=== PATIENT | female | born 1995 | race Caucasian/White ===

== ENCOUNTER → 2017-11-08 | Outpatient (CLI) | payer BC ==
--- NOTE | 2017-11-08 15:24 | Diagnostic Imaging Report ---
INDICATION: survey. TECHNIQUE: Multiple real-time grayscale images were obtained over the gravid uterus. COMPARISON: None. FINDINGS: There is a single live fetus in a cephalic presentation. The placenta is anterior. The amniotic fluid volume is normal. survey demonstrates kidneys, bladder, and stomach to be unremarkable. The brain is unremarkable. There is a four-chamber heart. There is a three-vessel cord with normal cord insertion. spine was not well seen on today's exam. Biometrical measurements are as follows: Biparietal 4.79 cm, age 20 weeks 4 days. Head circumference 17.82 cm, age 20 weeks 2 days. Abdominal circumference 13.58 cm, age 19 weeks 1 days. Femur length 3.77 cm, age 22 weeks 1 days. Sonographic estimate age: 20 weeks 4 days. Sonographic estimated date of delivery: 03/24/18. Estimated Weight: 353 gm (+/- 52 gm). LMP percentile: 53%. heart rate: 165 beats per minute. number: 1 of 1. IMPRESSION: Single live IUP at approximately 20 weeks 4 days gestational age. The estimated date of confinement sonographically is 03/24/2018. Note is made that spine was not well visualized on today's exam and followup could be performed. Dictated by: Dictated on workstation # [id number]
== END ==
LOC: RAD 13:44
PROVIDERS: ATTEND Obstetrics & Gynecology
DX: Z36.89 Encounter for other specified antenatal screening (principal); Z3A.20 20 weeks gestation of pregnancy
CPT/HCPCS: 76805

== ENCOUNTER 2018-05-23 05:55 | Day surgery (SDC) | payer BC, MEDICAID ==
[~2018-05-23] VITALS: Ht 167.6 cm; Wt 90.7 kg
[~2018-05-23 05:55] MED LIST: ACHD5005 PO; Benzocaine/Menthol TP; DIBU30OI TOP; DOCU100C37 PO; FERR325T18 PO; IBUP-844 PO; PNV11TAB5 PO
[2018-05-23 06:15] VITALS: BP 100/68
[2018-05-23] MEDS ORDERED: ceFAZolin 2 GM IV Premixed 50 ML IV ONE (06:30)
[2018-05-23] MEDS: LACTATED RINGERS 1,000 ML IV PRN ×2 (06:30→08:45)
[2018-05-23 06:38] LABS: BASOPHILS # (AUTO) 0.1 10^3/uL (0.0-0.1); BASOPHILS % (AUTO) 1 % (0-10); EOSINOPHILS # (AUTO) 0.2 10^3/uL (0.0-0.3); EOSINOPHILS % (AUTO) 3 % (0-10); HEMATOCRIT 37 % (35-52); HEMOGLOBIN 12.8 G/DL (11.5-16.0); LYMPHOCYTES # (AUTO) 1.7 X 10^3 (1.0-4.0); LYMPHOCYTES % (AUTO) 27 % (12-44); MEAN CORPUSCULAR HEMOGLOBIN 32 PG (25-34); MEAN CORPUSCULAR HGB CONC 35 G/DL (32-36); MEAN CORPUSCULAR VOLUME 92 FL (80-99); MEAN PLATELET VOLUME 10.3 FL (7.4-10.4); MONOCYTES # (AUTO) 0.6 X 10^3 (0.0-1.0); MONOCYTES % (AUTO) 9 % (0-12); NEUTROPHILS # (AUTO) 3.8 X 10^3 (1.8-7.8); NEUTROPHILS % (AUTO) 60 % (42-75); PLATELET COUNT 334 10^3/uL (130-400); RED BLOOD COUNT 4.03 10^6/uL (4.35-5.85); RED CELL DISTRIBUTION WIDTH 11.7 % (10.0-14.5); WHITE BLOOD COUNT 6.3 10^3/uL (4.3-11.0)
[2018-05-23] MEDS ORDERED: CATHETER FLUSH 10 ML SYR IV PRN (07:00)
[2018-05-23] MEDS ORDERED: LIDOCAINE PF 2% 5 ML (XYLOCAINE) VIAL ONE (07:02)
[2018-05-23] MEDS ORDERED: DEXAMETHASONE 10 MG/ML (DECADRON) 1 ML VIAL ONE (07:02)
[2018-05-23] MEDS ORDERED: NEOSTIGMINE 1 MG/ML 5 ML SYRINGE ONE (07:02)
[2018-05-23] MEDS ORDERED: ONDANSETRON 4 MG/2 ML (SDV) Z0FRAN ONE (07:02)
[2018-05-23] MEDS ORDERED: MIDAZOLAM 2 MG/2 ML (VERSED) VIAL ONE (07:02)
[2018-05-23] MEDS ORDERED: GLYCOPYRROLATE 0.2 MG/ML (ROBINUL) 2 ML VIAL ONE (07:02)
[2018-05-23] MEDS ORDERED: proPOfol 200 MG/20 ML (DIPRIVAN) VIAL IV ONE (07:02)
[2018-05-23] MEDS ORDERED: SEVOFLURANE (ULTANE) 15 ML INHAL SOLN ONE (07:02)
[2018-05-23] MEDS ORDERED: ROCURONIUM 10 MG/ML 5 ML SYRINGE IV ONE (07:02)
[2018-05-23] MEDS ORDERED: fentaNYL INJECTION 100 MCG/2 ML AMP ONE ×2 (07:02→09:09)
[2018-05-23] MEDS ORDERED: LIDOCAINE/EPI 1%-1:200,000 (XYLOCAINE) 10 ML VIAL ONE (07:02)
--- OUTSIDE RECORDS SUMMARY | 2018-05-23 07:46 | XMS REPORT | Continuity of Care Document ---
Demographics Preferred Language Unknown Marital Status Unknown Gnosticism Affiliation Unknown Race Unknown Ethnic Group Unknown Author Author [facility] Address Unknown Phone Unavailable Allergies Active Description Code Type Severity Reaction Onset Reported/Identified Relationship to Patient Clinical Status Yes ibuprofen [id number] Drug Allergy Unknown N/A 03/15/2018 Yes No Known Drug Allergies [id number] Drug Allergy Unknown N/A 03/15/2018 Medications There is no data. Problems Date Dx Coded Attending Type Code Diagnosis Diagnosed By 11/09/2017 FENECH DOVAZQUEZ S Ot Z36.89 ENCOUNTER FOR OTHER SPECIFIED 11/09/2017 FENECH DO, VAZQUEZ S Ot Z3A.20 20 WEEKS GESTATION OF 11/26/2017 FENECH DO VAZQUEZ S Ot Z36.89 ENCOUNTER FOR OTHER SPECIFIED 11/26/2017 FENECH DO, VAZQUEZ S Ot Z3A.20 20 WEEKS GESTATION OF 11/30/2017 FENECH DO VAZQUEZ S Ot Z36.89 ENCOUNTER FOR OTHER SPECIFIED 11/30/2017 FENECH DO, VAZQUEZ S Ot Z3A.20 20 WEEKS GESTATION OF 12/03/2017 FENECH DO, VAZQUEZ S Ot Z36.89 ENCOUNTER FOR OTHER SPECIFIED 12/03/2017 FENECH DO, VAZQUEZ S Ot Z3A.20 20 WEEKS GESTATION OF 01/10/2018 FENECH DO, VAZQUEZ S Ot Z36.89 ENCOUNTER FOR OTHER SPECIFIED 01/10/2018 FENECH DO, VAZQUEZ S Ot Z3A.20 20 WEEKS GESTATION OF 01/10/2018 FENECH DO, VAZQUEZ S Ot Z36.89 ENCOUNTER FOR OTHER SPECIFIED 01/10/2018 FENECH DO, VAZQUEZ S Ot Z3A.20 20 WEEKS GESTATION OF 01/14/2018 FENECH DO, VAZQUEZ S Ot Z36.89 ENCOUNTER FOR OTHER SPECIFIED 01/14/2018 FENECH DO, VAZQUEZ S Ot Z3A.20 20 WEEKS GESTATION OF 03/17/2018 FENECH DO VAZQUEZ S Ot O70.0 FIRST DEGREE PERINEAL LACERATION DURING 03/17/2018 FENECH DO VAZQUEZ S Ot O90.81 ANEMIA OF THE PUERPERIUM 03/17/2018 FENECH DO VAZQUEZ S Ot Z37.0 SINGLE LIVE 03/17/2018 VAZQUEZ CONROY DO Ot Z3A.38 38 WEEKS GESTATION OF 03/18/2018 HECTORECH VAZQUEZ LECHUGA Ot Z36.89 ENCOUNTER FOR OTHER SPECIFIED 03/18/2018 VAZQUEZ CONROY DO Ot Z3A.20 20 WEEKS GESTATION OF 04/10/2018 VAZQUEZ CONROY DO Ot Z36.89 ENCOUNTER FOR OTHER SPECIFIED 04/10/2018 VAZQUEZ CONROY DO Ot Z3A.20 20 WEEKS GESTATION OF 04/12/2018 VAZQUEZ CONROY DO Ot Z36.89 ENCOUNTER FOR OTHER SPECIFIED 04/12/2018 VAZQUEZ CONROY DO Ot Z3A.20 20 WEEKS GESTATION OF Procedures Code Description Performed By Performed On [id number] REPAIR PERINEUM SKIN, EXTERNAL APPROACH 03/15/2018 [id number] DELIVERY OF PRODUCTS OF CONCEPTION, EXTE 03/15/2018 Results Test Result Range Complete blood count (CBC) with automated white blood cell (WBC) differential - 03/15/18 11:33 Blood leukocytes automated count (number/volume) 12.4 10*3/uL 4.3-11.0 Blood erythrocytes automated count (number/volume) 3.62 10*6/uL 4.35-5.85 Venous blood hemoglobin measurement (mass/volume) 11.9 g/dL 11.5-16.0 Blood hematocrit (volume fraction) 34 % 35-52 Automated erythrocyte mean corpuscular volume 94 [foz_us] 80-99 Automated erythrocyte mean corpuscular hemoglobin (mass per erythrocyte) 33 pg 25-34 Automated erythrocyte mean corpuscular hemoglobin concentration measurement ( mass/volume) 35 g/dL 32-36 Automated erythrocyte distribution width ratio 13.2 % 10.0-14.5 Automated blood platelet count (count/volume) 267 10*3/uL 130-400 Automated blood platelet mean volume measurement 11.4 [foz_us] 7.4-10.4 Automated blood neutrophils/100 leukocytes 83 % 42-75 Automated blood lymphocytes/100 leukocytes 9 % 12-44 Blood monocytes/100 leukocytes 7 % 0-12 Automated blood eosinophils/100 leukocytes 0 % 0-10 Automated blood basophils/100 leukocytes 0 % 0-10 Blood neutrophils automated count (number/volume) 10.3 10*3 1.8-7.8 Blood lymphocytes automated count (number/volume) 1.2 10*3 1.0-4.0 Blood monocytes automated count (number/volume) 0.9 10*3 0.0-1.0 Automated eosinophil count 0.0 10*3/uL 0.0-0.3 Automated blood basophil count (count/volume) 0.0 10*3/uL 0.0-0.1 Blood type T Indirect antibody screen panel - 03/15/18 11:33 ABO+Rh group AN NRG Transfusion band number [id number] NRG Blood group antibody screen NEGATIVE NRG Complete blood count (CBC) with automated white blood cell (WBC) differential - 03/16/18 05:35 Blood leukocytes automated count (number/volume) 11.4 10*3/uL 4.3-11.0 Blood erythrocytes automated count (number/volume) 3.21 10*6/uL 4.35-5.85 Venous blood hemoglobin measurement (mass/volume) 10.3 g/dL 11.5-16.0 Blood hematocrit (volume fraction) 31 % 35-52 Automated erythrocyte mean corpuscular volume 95 [foz_us] 80-99 Automated erythrocyte mean corpuscular hemoglobin (mass per erythrocyte) 32 pg 25-34 Automated erythrocyte mean corpuscular hemoglobin concentration measurement ( mass/volume) 34 g/dL 32-36 Automated erythrocyte distribution width ratio 13.2 % 10.0-14.5 Automated blood platelet count (count/volume) 250 10*3/uL 130-400 Automated blood platelet mean volume measurement 11.6 [foz_us] 7.4-10.4 Automated blood neutrophils/100 leukocytes 74 % 42-75 Automated blood lymphocytes/100 leukocytes 16 % 12-44 Blood monocytes/100 leukocytes 8 % 0-12 Automated blood eosinophils/100 leukocytes 1 % 0-10 Automated blood basophils/100 leukocytes 0 % 0-10 Blood neutrophils automated count (number/volume) 8.5 10*3 1.8-7.8 Blood lymphocytes automated count (number/volume) 1.9 10*3 1.0-4.0 Blood monocytes automated count (number/volume) 0.9 10*3 0.0-1.0 Automated eosinophil count 0.1 10*3/uL 0.0-0.3 Automated blood basophil count (count/volume) 0.0 10*3/uL 0.0-0.1 RH IMMUNE GLOBULIN RHOPHYLAC - 03/16/18 05:35 RH IMMUNE GLOBULIN RHOPHYLAC PRSMD TRFSD 03/16/18 1319 NRG cell screen - 03/16/18 05:35 SCREEN LOT NUMBER [id number] NRG Transfusion band number [id number] NRG [id number] 1 300ug NRG Erythrocytes./1000 erythrocytes 04/12/18 NRG cell screen 09/10/19 NRG Lot number [id number] NRG Encounters ACCT No. Visit Date/Time Discharge Status Pt. Type Provider Facility Loc./Unit Complaint [id number] 08/28/2012 15:11:56 RECURRING [id number] 03/15/2018 11:10:00 03/17/2018 13:45:00 DIS Inpatient VAZQUEZ CONROY DO [facility] LDRP LABOR [id number] 11/08/2017 13:44:00 11/08/2017 23:59:59 CLS Outpatient VAZQUEZ CONROY DO [facility] RAD Z33.1
--- NOTE | 2018-05-23 08:19 | Progress Note-Pre Operative ---
Pre-Operative Progress Note H&P Reviewed The H&P was reviewed, patient examined and no changes noted. Time Seen by Provider: 08:14 Date H&P Reviewed: May 23, 2018 Time H&P Reviewed: 08:16 Pre-Operative Diagnosis: Shannon/Shannon YAJAIRA TRAVIS DO May 23, 2018 08:18
--- NOTE | 2018-05-23 09:05 | Progress Note-Post Operative ---
Post-Operative Progess Note Surgeon (s)/Oxygen Equipment Aide (s) Surgeon YAJAIRA TRAVIS DO Oxygen Equipment Aide: Ginny Pre-Operative Diagnosis Shannon/Shannon Post-Operative Diagnosis same Procedure & Operative Findings Date of Procedure 05/23/18 Procedure Performed/Findings Lap Shannon with IOC Anesthesia Type GET Estimated Blood Loss Estimated blood loss (mL): scant Specimens/Packing Specimens Removed GB and contents YAJAIRA TRAVIS DO May 23, 2018 09:05
[2018-05-23] MEDS ORDERED: ACHD5005 PO (09:06)
--- NOTE | 2018-05-23 09:08 | Discharge Inst-Surgical ---
Discharge Inst-Surgical Depart Medication/Instructions New, Converted or Re-Newed RX: RX Given to Pt/Family Patient Instructions Follow up Appt: Make appointment for 1 week; [phone]. Instructions: No lifting greater than 10 pounds. No strenuous activity. May shower in 24 hours, no tub bath or soaking. Use incentive spirometer at home as directed. No Smoking Skin/Wound Care: May remove bandages in am. You need to leave the Dermabond on over incision it will fall off on its own. Symptoms to Report: Appetite Changes, Extremity Discoloration, Numbness/Tingling, Swelling Increased , Bleeding Excessive, Eyesight Changes, Pain Increased, Urine Color Change, Constipation(Persistent), Fever over 101 degree F, Pain/Pressure in chest, Urinating Difficulty, Cough Up/Vomit Blood, Heart Beat Irreg/Pounding, Pain/ Pressure in jaw, Vaginal Bleeding Increase, Cramps in feet or legs, Lightheadedness, Pain/Pressure in shoulder, Diarrhea(Persistent), Memory Changes Suddenly, Questions/Concerns, Weight gain consecutive days, Dizziness/ Fainting, Nausea/Vomiting, Shortness of Breath, Weight gain over 2 pounds. If eyes or skin turn yellow notify physician. If questions or concerns contact your physician Or seek help at emergency department. Activity Activity as Tolerated: Yes Activity Instructions: Avoid Stress to Incision Driving Instructions: No Driving/Refer to Diet Discharge Diet: Avoid Fatty Foods, Low Fat/Low Cholesterol Diet After 24 Hours: Clear Liquid if Nauseous If Any Problems/Questions/Issu: Contact Your Physician, Go to Emergency Room Skin/Wound Care Infection Signs and Symptoms: Increased Redness, Foul Odor of Wound, Increased Drainage, Skin Itchy or Has a Rash, Increased Swelling, Temperature Above 101 F Wound Care Comment: Heating pad to neck or shoulder tonight for pain Bathing Instructions: Shower Operative Area Clean and Dry: Keep Incision Clean/Dry Stitches/Prince/Dermabond Dis: Dermabond Ice Pack: Ice On and Off Site (as needed for pain at incisions) YAJAIRA TRAVIS DO May 23, 2018 09:08
[2018-05-23] MEDS ORDERED: morphine INJ 10 MG/ML 1ML (SYR OR VIAL) ONE (09:21)
[2018-05-23] MEDS ORDERED: morphine INJ 10 MG/ML 1ML (SYR OR VIAL) IVP ONE (09:30)
[2018-05-23] MEDS ORDERED: ONDANSETRON 4 MG/2 ML (SDV) Z0FRAN IVP PRN (09:30)
[2018-05-23 10:20] VITALS: BP 127/94
--- NOTE | 2018-05-23 10:44 | Anesthesia-General Post-Op ---
General Patient Condition Mental Status/LOC: Same as Preop Cardiovascular: Satisfactory Nausea/Vomiting: Absent Respiratory: Satisfactory Pain: Controlled Complications: Absent Post Op Complications Complications None Follow Up Care/Instructions Patient Instructions None needed. Anesthesia/Patient Condition Patient Condition Patient is doing well, no complaints, stable vital signs, no apparent adverse anesthesia problems. No complications reported per nursing. AIMEE JUNIOR CRNA May 23, 2018 10:44
[2018-05-23 10:50] VITALS: BP 108/77
[2018-05-23 12:20] VITALS: BP_SYST 108; BP_DIAS 62; BP_DIAS 80
--- NOTE | 2018-05-23 13:49 | Diagnostic Imaging Report ---
INDICATION: Gallbladder disease. FINDINGS: Intraoperative cholangiogram demonstrates normal caliber of the intrahepatic and extrahepatic biliary ducts. No intrinsic or extrinsic filling defects are appreciated. There is free spill of contrast into the duodenum. There is no pathological extravasation of contrast. IMPRESSION: Unremarkable intraoperative cholangiogram status post cholecystectomy. Please correlate with the formal operative report. Dictated by: Dictated on workstation # [id number]
--- NOTE | 2018-05-23 14:51 | OPERATIVE REPORT ---
DATE OF SERVICE: 05/23/2018 PREOPERATIVE DIAGNOSES: Cholelithiasis, cholecystitis. POSTOPERATIVE DIAGNOSES: Cholelithiasis, cholecystitis. PROCEDURES: Laparoscopic cholecystectomy and intraoperative cholangiogram. SURGEON: Antwan Nielson DO WELDING MACHINE OPERATOR GAS: Anderson Gross DO ANESTHESIA: General endotracheal tube. SPECIMEN: Gallbladder and contents. BLOOD LOSS: Scant. FLUIDS: Per anesthesia. POSTOPERATIVE CONDITION: Stable. INDICATION FOR PROCEDURE: The patient is a 22-year-old female, who has been having abdominal pain in the right upper quadrant, started just prior to giving , had an ultrasound, which showed stones. Signs classic for cholecystitis and cholelithiasis. FINDINGS: The patient had what looked like possibly minimally erythematous gallbladder, but no other obvious pathology. PROCEDURE NOTE: After informed consent was obtained, the patient was brought to the operating room, placed on table in supine position. She was sterilely prepped and draped in normal fashion. Local lidocaine was used to infiltrate the skin above the umbilicus and made incision with #11 blade, carried down through the skin into subcutaneous tissue with Bovie electrocautery down to the fascia. Fascia was incised with Bovie electrocautery and bluntly entered the abdomen, swept the finger around, placed 0 Vicryl hifrgl-hi-acseu suture and placed 11 mm trocar port under direct visualization. After first doing an 0 Vicryl lgpyvg-ye-kedcm suture, created pneumoperitoneum and then placed 3 more ports in normal fashion using local lidocaine, 11 blade for stab incision and VersaStep system, all done under direct visualization, one subxiphoid and 2 in the right upper quadrant. The patient was then placed slightly in reverse Trendelenburg and rotated left, able to visualize the gallbladder. It looked like it was a little bit red at the tip. Able to grasp at the fundus and taken in superior direction and then grasped down at Olaf's pouch, pulled in the inferolateral direction, started dissecting out the cystic duct and cystic artery. Able to get around the cystic duct and the cystic artery, placed 1 clip distally on the cystic duct and one distally and 2 proximally on the cystic artery. Cut the cystic duct usp through Metzenbaum scissors. Placed a cholangiogram catheter and shot a cholangiogram. Good spillage of dye down the common bile duct and the small intestine as well as up the common hepatic and right and left hepatics, removed the cholangiogram catheter, placed 2 clips proximally on the cystic duct and cut the cystic duct and cystic artery with Metzenbaum scissors. Then removed the gallbladder from bed of the liver with L-hook cautery, which was completely removed, placed a bag in the abdomen, placed the gallbladder in the bag and then removed this through the supraumbilical incision. Placed the port back in the abdomen, copiously irrigated with normal saline. Hemostasis was obtained using Bovie electrocautery in the bed of liver. There was no bleeding. I looked around it, just looked in the pelvis, did not move any of the intestine, did not see any other obvious pathology, no hernias. At this point, placed the patient supine. Suctioned out all the fluid and then suctioned out the pneumoperitoneum as well as allowed it to escape, closed supraumbilical incision, closing the fascia with 0 Vicryl suture previously placed. Copiously irrigated all incisions with normal saline and then closed the 3 small 5 mm incisions with a single interrupted 4-0 undyed Monocryl subcuticular stitch, closed supraumbilical incision with 3 interrupted 4-0 undyed Monocryl subcuticular stitches. Area was cleaned and dried and Dermabond was placed as well as Band-Aids. The patient was then transferred to recovery room in stable condition. Sponge, instrument and needle counts were correct at the end of the case. Dr. Gross assisted in this case helping to make incisions, hold the gallbladder away, identify anatomy and then closed the incisions. Job ID: [id number] DocumentID: [id number] Dictated Date: 05/23/2018 09:21:40 Account Manager Relief Date: 05/23/2018 14:50:35 Dictated By: DO JNAEEN GRIJALVA
== END 2018-05-23 11:20 | disposition home or self-care (01) ==
LOC: SDC 05:55
PROVIDERS: ATTEND Surgery
DX: K81.1 Chronic cholecystitis (principal); E66.01 Morbid (severe) obesity due to excess calories; Z68.32 Body mass index [BMI] 32.0-32.9, adult
CPT/HCPCS: 36415; 84703; 85025; 87081

== ENCOUNTER → 2018-08-01 | Outpatient (CLI) | payer BC, MEDICAID ==
--- NOTE | 2018-08-01 18:31 | Diagnostic Imaging Report ---
INDICATION: Right breast lump. The patient is 4 months and reportedly is breast-feeding. EXAMINATION: Sonographic interrogation of the area of lump in the right breast was performed. This corresponds to the 10 o'clock location. FINDINGS: There are somewhat lobulated and isoechoic imaging features that are fairly benign. 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 Fibroadenoma would be an additional consideration. Sonographic followup with repeat study in 3-4 months could be performed to confirm stability. Consideration could be given to performance of a core biopsy. Lactating adenomas typically regress during cessation of breast-feeding. Solid-appearing mass at this location, 4 cm from the nipple, measuring 3.4 x 1.8 x 3.3 cm. This does show some internal vascularity. No posterior acoustic shadowing is present. The lesion is wider than it is tall. No other masses are seen. The right axilla is unremarkable. IMPRESSION: A lobulated solid-appearing mass at the 10 o'clock location of the right breast, corresponding to the palpable abnormality. ACR BI-RADS Category 3: Probably benign findings. Result letter will be mailed to the patient. Note: At least 10% of breast cancer is not imaged by mammography. Dictated by: Dictated on workstation # [id number]
== END ==
LOC: RAD 08:42
PROVIDERS: ATTEND Obstetrics & Gynecology
DX: Z39.2 Encounter for routine postpartum follow-up (principal); N63.11 Unspecified lump in the right breast, upper outer quadrant
CPT/HCPCS: 76641

== ENCOUNTER → 2023-04-17 | Outpatient (CLI) | payer BC ==
--- NOTE | 2023-04-17 17:14 | Diagnostic Imaging Report ---
PROCEDURE: US Non-ob pelvis comp/trans. TECHNIQUE: Multiple realtime grayscale images were obtained of the pelvis in various projections endovaginally. Transabdominal imaging was also performed. INDICATION: Abdominal pain and IUD check. FINDINGS: Uterus measures 5.2 x 5.5 x 4 cm. There are no myometrial or endometrial masses. IUD appears be in satisfactory position. Ovaries normal size, morphology and demonstrate normal blood flow. Endometrial thickness is 5 mm. There are no adnexal masses. IMPRESSION: IUD appears to be in satisfactory position. Otherwise unremarkable pelvic ultrasound. Dictated by: Dictated on workstation # [id number]
== END ==
LOC: RAD FS 15:09
PROVIDERS: ATTEND Nurse Practitioner Women's Health
DX: Z30.431 Encounter for routine checking of intrauterine contraceptive device (principal); R10.30 Lower abdominal pain, unspecified
CPT/HCPCS: 76830; 76856